=== PATIENT | male | born 2000 | race African-American/Black ===

== ENCOUNTER 2022-10-21 21:32 | Emergency (ER) | payer MEDICAID ==
[~2022-10-21] VITALS: Ht 170.2 cm; Wt 54.0 kg
[2022-10-21] MEDS ORDERED: NAPR-681 MT (22:35)
[2022-10-21] MEDS ORDERED: IBUPROFEN 600MG TABLET PO ONE (22:45)
[2022-10-21 23:00] VITALS: BP 125/80
== END 2022-10-21 23:30 | disposition home or self-care (01) ==
LOC: ER 21:57
DX: S69.92XA Unspecified injury of left wrist, hand and finger(s), initial encounter (principal); Y08.89XA Assault by other specified means, initial encounter; Y93.89 Activity, other specified; Y92.89 Other specified places as the place of occurrence of the external cause; Y99.8 Other external cause status
CPT/HCPCS: 29125; 73110; 73130; 99284